=== PATIENT | female | born 1995 | race Caucasian/White ===

== ENCOUNTER 2018-01-12 23:33 | Emergency (ER) | payer MEDICAID ==
[2018-01-12 23:40] VITALS: TEMP 98.7
[2018-01-12] MEDS ORDERED: SODIUM CHLORIDE 0.9% 1,000 ML IV ONE (23:58)
[2018-01-12] MEDS ORDERED: SODIUM CHLORIDE 0.9% 500 ML IV ONE (23:58)
[2018-01-12] MEDS ORDERED: ONDANSETRON 4 MG/2 ML VIAL IVP STA (23:58)
--- NOTE | 2018-01-13 00:11 | ED ---
Abdominal Pain HPI - General Chief Complaint: Abdominal Pain Stated Complaint: abd pain,vomiting Time Seen by Provider: 01/12/18 23:41 Source: patient Mode of arrival: ambulatory Limitations: no limitations - History of Present Illness Initial Comments: 22-year-old female patient presents to the emergency department today for evaluation of vomiting, diarrhea, and abdominal discomfort. Patient states that symptoms started approximately 5 days ago. Patient states that she has had numerous episodes of vomiting and diarrhea daily. States she is unable to keep down any food or fluids. Patient states that she has had a fever as high as 100.5. Patient is unsure if she is . Denies any hematuria, dysuria , urinary frequency, urinary urgency. She denies any back pain. Patient did travel to [place] and [facility] approximately one month ago. Denies any sick contacts. Patient denies any recent rash, shortness breath, chest pain, constipation, back pain, numbness, tingling, dizziness, weakness, headache, visual changes, or any other complaints. - Related Data Previous Rx's Medication Instructions Recorded Ondansetron [Zofran ODT] 4 mg PO Q8HR PRN #10 tab 01/13/18 Allergies Allergy/AdvReac Type Severity Reaction Status Date / Time Sulfa (Sulfonamide Allergy Anaphylaxis Verified 01/12/18 23:38 Antibiotics) Review of Systems ROS Statement: Those systems with pertinent positive or pertinent negative responses have been documented in the HPI. ROS Other: All systems not noted in ROS Statement are negative. Past Medical History Additional Past Medical History / Comment(s): celiac disease History of Any Multi-Drug Resistant Organisms: None Reported Past Surgical History: No Surgical Hx Reported Past Psychological History: No Psychological Hx Reported Smoking Status: Never smoker Past Alcohol Use History: Occasional Past Drug Use History: None Reported General Exam Limitations: no limitations General appearance: alert, in no apparent distress, other (This is a well- developed, well-nourished adult female patient in no acute distress. Vital signs upon presentation are temperature 98.7F, pulse 92, respirations 18, blood pressure 145/92, pulse ox 98% on room air.) Eye exam: Present: normal appearance, PERRL, EOMI. Absent: scleral icterus, conjunctival injection, periorbital swelling ENT exam: Present: normal exam, normal oropharynx, mucous membranes moist Respiratory exam: Present: normal lung sounds bilaterally. Absent: respiratory distress, wheezes, rales, rhonchi, stridor Cardiovascular Exam: Present: regular rate, normal rhythm, normal heart sounds. Absent: systolic murmur, diastolic murmur, rubs, gallop, clicks GI/Abdominal exam: Present: soft, normal bowel sounds. Absent: distended, tenderness, guarding, rebound, rigid Neurological exam: Present: alert, oriented X3, CN II-XII intact Psychiatric exam: Present: normal affect, normal mood Skin exam: Present: warm, dry, intact, normal color. Absent: rash Course Vital Signs 01/12/18 23:38 Temperature 98.7 F Pulse Rate 92 Respiratory 18 Rate Blood Pressure 145/92 O2 Sat by Pulse 98 Oximetry Medical Decision Making - Medical Decision Making 22-year-old female patient presented to the emergency department today for evaluation of vomiting, diarrhea, and generalized abdominal cramping. Patient reported she did have fevers over the last couple of days. Labs reviewed and were unremarkable. Urinalysis showed no evidence of infection. HCG was negative. Given patient's symptoms do believe she is suffering from gastroenteritis. She isn't better after receiving Zofran and IV fluids here in the department. She'll be discharged home at this time a prescription for Zofran. She is instructed to follow-up with her primary care physician for recheck in 1-2 days. She is instructed to return here immediately for any new, worsening, or concerning symptoms. She verbalizes understanding and agrees with this plan. - Lab Data Result diagrams: 01/13/18 00:22 01/13/18 00:22 Lab Results 01/12/18 01/12/18 01/13/18 Range/Units 23:59 23:59 00:22 WBC (3.8-10.6) k/uL RBC (3.80-5.40) m/uL Hgb (11.4-16.0) gm/dL Hct (34.0-46.0) % MCV (80.0-100.0) fL MCH (25.0-35.0) pg MCHC (31.0-37.0) g/dL RDW (11.5-15.5) % Plt Count (150-450) k/uL Neutrophils % (Manual) % Lymphocytes % (Manual) % Monocytes % (Manual) % Eosinophils % (Manual) % Neutrophils # (Manual) (1.3-7.7) k/uL Lymphocytes # (Manual) (1.0-4.8) k/uL Monocytes # (Manual) (0-1.0) k/uL Eosinophils # (Manual) (0-0.7) k/uL Nucleated RBCs (0-0) /100 WBC Manual Slide Review Reactive Lymphocytes Sodium 137 (137-145) mmol/L Potassium 3.6 (3.5-5.1) mmol/L Chloride 98 (98-107) mmol/L Carbon Dioxide 27 (22-30) mmol/L Anion Gap 12 mmol/L BUN 10 (7-17) mg/dL Creatinine 0.70 (0.52-1.04) mg/dL Est GFR (CKD-EPI)AfAm >90 (>60 ml/min/1.73 sqM) Est GFR (CKD-EPI)NonAf >90 (>60 ml/min/1.73 sqM) Glucose 85 (74-99) mg/dL Calcium 9.0 (8.4-10.2) mg/dL Total Bilirubin 0.3 (0.2-1.3) mg/dL AST 32 (14-36) U/L ALT 40 (9-52) U/L Alkaline Phosphatase 59 (38-126) U/L Total Protein 6.0 L (6.3-8.2) g/dL Albumin 3.5 (3.5-5.0) g/dL Amylase 37 (30-110) U/L Lipase 50 (23-300) U/L Urine Color Yellow Urine Appearance Cloudy H (Clear) Urine pH 6.5 (5.0-8.0) Ur Specific [place] 1.032 (1.001-1.035) Urine Protein 1+ H (Negative) Urine Glucose (UA) Negative (Negative) Urine Ketones Trace H (Negative) Urine Blood Negative (Negative) Urine Nitrite Negative (Negative) Urine Bilirubin Negative (Negative) Urine Urobilinogen 3.0 (<2.0) mg/dL Ur Leukocyte Esterase Negative (Negative) Urine RBC 4 (0-5) /hpf Urine WBC 6 H (0-5) /hpf Ur Squamous Epith Cells 7 H (0-4) /hpf Urine Bacteria Rare H (None) /hpf Urine Mucus Occasional H (None) /hpf Urine HCG, Qual Not Detected (Not Detectd) 01/13/18 Range/Units 00:22 WBC 5.7 (3.8-10.6) k/uL RBC 4.49 (3.80-5.40) m/uL Hgb 13.9 (11.4-16.0) gm/dL Hct 39.2 (34.0-46.0) % MCV 87.3 (80.0-100.0) fL MCH 31.0 (25.0-35.0) pg MCHC 35.6 (31.0-37.0) g/dL RDW 13.7 (11.5-15.5) % Plt Count 260 (150-450) k/uL Neutrophils % (Manual) 56 % Lymphocytes % (Manual) 24 % Monocytes % (Manual) 18 % Eosinophils % (Manual) 2 % Neutrophils # (Manual) 3.19 (1.3-7.7) k/uL Lymphocytes # (Manual) 1.37 (1.0-4.8) k/uL Monocytes # (Manual) 1.03 H (0-1.0) k/uL Eosinophils # (Manual) 0.11 (0-0.7) k/uL Nucleated RBCs 0 (0-0) /100 WBC Manual Slide Review Performed Reactive Lymphocytes Present Sodium (137-145) mmol/L Potassium (3.5-5.1) mmol/L Chloride (98-107) mmol/L Carbon Dioxide (22-30) mmol/L Anion Gap mmol/L BUN (7-17) mg/dL Creatinine (0.52-1.04) mg/dL Est GFR (CKD-EPI)AfAm (>60 ml/min/1.73 sqM) Est GFR (CKD-EPI)NonAf (>60 ml/min/1.73 sqM) Glucose (74-99) mg/dL Calcium (8.4-10.2) mg/dL Total Bilirubin (0.2-1.3) mg/dL AST (14-36) U/L ALT (9-52) U/L Alkaline Phosphatase (38-126) U/L Total Protein (6.3-8.2) g/dL Albumin (3.5-5.0) g/dL Amylase (30-110) U/L Lipase (23-300) U/L Urine Color Urine Appearance (Clear) Urine pH (5.0-8.0) Ur Specific [place] (1.001-1.035) Urine Protein (Negative) Urine Glucose (UA) (Negative) Urine Ketones (Negative) Urine Blood (Negative) Urine Nitrite (Negative) Urine Bilirubin (Negative) Urine Urobilinogen (<2.0) mg/dL Ur Leukocyte Esterase (Negative) Urine RBC (0-5) /hpf Urine WBC (0-5) /hpf Ur Squamous Epith Cells (0-4) /hpf Urine Bacteria (None) /hpf Urine Mucus (None) /hpf Urine HCG, Qual (Not Detectd) Disposition Clinical Impression: Gastroenteritis Disposition: HOME SELF-CARE Condition: Good Instructions: Gastroenteritis (ED) Additional Instructions: Increase fluids. Take medications as directed. Return with stool sample for the lab. Follow-up with your primary care physician for recheck in 1-2 days. Return here immediately for any new, worsening, or concerning symptoms. Prescriptions: Ondansetron [Zofran ODT] 4 mg PO Q8HR PRN #10 tab PRN Reason: Nausea Is patient prescribed a controlled substance at d/c from ED?: No Referrals: Asad Sheikh DO [Primary Care Provider] - 1-2 days Time of Disposition: 02:05
[2018-01-13 00:18] LABS: Appearance,Urine Cloudy (Clear); Bacteria,Urine Rare /hpf; Bilirubin,Urine Negative (Negative); Blood,Urine Negative (Negative); Color,Urine Yellow; Glucose,Urine (UA) Negative (Negative); Ketones,Urine Trace (Negative); Leukocyte Esterase,Urine Negative (Negative); Mucus,Urine Occasional /hpf; Nitrite,Urine Negative (Negative); PH, Urine 6.5 (5.0-8.0); Protein,Urine 1+ (Negative); RBC,Urine 4 /hpf (0-5); Specific Gravity,Urine 1.032 (1.001-1.035); Squamous Epithelial Cell,Urine 7 /hpf (0-4); WBC,Urine 6 /hpf (0-5)
[2018-01-13 00:48] LABS: HCT 39.2 % (34.0-46.0); HGB 13.9 gm/dL (11.4-16.0); MCHC 35.6 g/dL (31.0-37.0); MCV 87.3 fL (80.0-100.0); Mean Platelet Volume 6.9; Platelet Count 260 k/uL (150-450); RBC 4.49 m/uL (3.80-5.40); RDW 13.7 % (11.5-15.5); WBC 5.7 k/uL (3.8-10.6)
[2018-01-13 00:57] LABS: ALT 40 U/L (9-52); AST 32 U/L (14-36); Albumin 3.5 g/dL (3.5-5.0); Alkaline Phosphatase 59 U/L (38-126); Amylase 37 U/L (30-110); Anion Gap 12 mmol/L; Blood Urea Nitrogen 10 mg/dL (7-17); Carbon Dioxide 27 mmol/L (22-30); Chloride 98 mmol/L (98-107); Glucose 85 mg/dL (74-99); Lipase 50 U/L (23-300); Potassium 3.6 mmol/L (3.5-5.1); Sodium 137 mmol/L (137-145); Total Bilirubin 0.3 mg/dL (0.2-1.3)
[2018-01-13 01:14] LABS: Eosinophils # (M) 0.11 k/uL (0-0.7); Lymphocytes # (M) 1.37 k/uL (1.0-4.8); Monocytes # (M) 1.03 k/uL (0-1.0); Neutrophils # (M) 3.19 k/uL (1.3-7.7); Neutrophils % (M) 56 %; Nucleated Red Blood Cells 0 /100 WBC (0-0); Reactive Lymphocytes Present; Total Cells Counted 100
[2018-01-13] MEDS ORDERED: ONDANSETRON 4 MG ODT STARTER PACK 2 TAB BTL PO STA (02:07)
[2018-01-13 02:20] VITALS: BP 151/61; PULSE 70; RESP 16
== END 2018-01-13 02:24 | disposition home or self-care (01) ==
LOC: EC 23:33
DX: K52.9 Noninfective gastroenteritis and colitis, unspecified (principal); Z32.02 Encounter for pregnancy test, result negative; Z88.2 Allergy status to sulfonamides
CPT/HCPCS: 99284; 96374; 96361; 36415; 80053; 82150; 83690; 85025; 81001; 81025; J2405

== ENCOUNTER → 2021-01-20 | Outpatient (CLI) | payer OTHER ==
--- NOTE | 2021-01-20 15:29 | US ---
EXAMINATION TYPE: US abdomen complete DATE OF EXAM: 01/20/2021 COMPARISON: NONE CLINICAL HISTORY: R10.13 EPIGASTRIC PAIN, R10.2 PELVIC PAIN. epigastric pain, RLQ pain EXAM MEASUREMENTS: Liver Length: 18.0 cm Gallbladder Wall: 0.2 cm CBD: 0.3 cm Spleen: 10.0 cm Right Kidney: 11.2 x 3.4 x 5.4 cm Left Kidney: 11.6 x 4.2 x 3.8 cm Pancreas: Obscured by bowel gas Liver: wnl Gallbladder: no evidence of stones Evidence for sonographic Alfaro's sign: no CBD: wnl Spleen: wnl Right Kidney: no evidence of hydronephrosis Left Kidney: no evidence of hydronephrosis Upper IVC: wnl Abd Aorta: wnl The liver is homogenous. The intrahepatic portion of the IVC and proximal abdominal aorta are within normal limits. There is no evidence of cholelithiasis. Common bile duct is unremarkable. The visu alized portions of the pancreas are homogenous. The spleen is unremarkable. Kidneys are symmetric a nd free of hydronephrosis. No renal lesions are seen. IMPRESSION: Unremarkable abdominal ultrasound. Pancreas obscured.
--- NOTE | 2021-01-20 15:30 | US ---
EXAMINATION TYPE: US pelvic complete DATE OF EXAM: 01/20/2021 COMPARISON: NONE CLINICAL HISTORY: R10.13 EPIGASTRIC PAIN,R10.2 PELVIC PAIN. right pelvic pain for 1 month TECHNIQUE: Transabdominal (TA). Date of LMP: 3 weeks ago EXAM MEASUREMENTS: Uterus: 8.1 x 4.2 x 4.6 cm Endometrial Stripe: 0.4 cm Right Ovary: 3.0 x 1.9 x 2.1 cm Left Ovary: 2.3 x 1.8 x 2.1 cm 1. Uterus: Anteverted 2. Endometrium: appears wnl 3. Right Ovary: follicles noted 4. Left Ovary: follicles noted 5. Bilateral Adnexa: small amount of free fluid. large amount of peristalsing bowel 6. Posterior cul-de-sac: small amount of free fluid noted IMPRESSION: Free fluid in the pelvis is likely physiologic.
== END | disposition home or self-care (01) ==
LOC: RADUSWWP 14:09
PROVIDERS: ATTEND Family Medicine
DX: R10.13 Epigastric pain (principal); R10.2 Pelvic and perineal pain; R10.31 Right lower quadrant pain
CPT/HCPCS: 76700; 76856

== ENCOUNTER 2021-01-30 10:43 | Day surgery (SDC) | payer OTHER ==
[2021-01-27 13:01] VITALS: BMI 19.3
[~2021-01-30 10:43] MED LIST: LACTATED RINGERS 1,000 ML IV SCH; LIDOCAINE 1% (10MG/ML) FOR IV START INTRADERMA PRN
[2021-01-30 11:53] VITALS: TEMP 98.9
[2021-01-30] MEDS ORDERED: LIDOCAINE 1% INJ 10MG/ML (20 ML MDV) ONE (12:43)
[2021-01-30] MEDS ORDERED: PROPOFOL 10 MG/ML 20 ML VIAL IV ONE (12:43)
--- NOTE | 2021-01-30 12:56 | P.PCN ---
Date of Procedure: 01/30/21 Procedure(s) Performed: BRIEF HISTORY: Patient is a 25-year-old, pleasant, white female scheduled for an upper endoscopy as a part of evaluation of epigastric pain and lower abdominal pain associated with progressive weight loss of 20 pounds in the last 6 months duration. She is currently on Prilosec and Bentyl with no help.. PROCEDURE PERFORMED: Esophagogastroduodenoscopy with biopsy. PREOPERATIVE DIAGNOSIS: Chronic Epigastric pain and weight loss for the last 6 months duration IV sedation per anesthesia. PROCEDURE: After informed consent was obtained, the patient was brought into the endoscopy unit. IV sedation was administered by Anesthesia under continuous monitoring. Initially the Olympus GIF-140 video endoscope was inserted into the mouth. Esophagus intubated without any difficulty. It was gradually advanced into the stomach and duodenum and carefully examined. The bulb and the second part of the duodenum appeared normal. Abscesses were done from the duodenum to rule out celiac disease. The scope at this time was withdrawn to the stomach, adequately insufflated with air, and upon careful examination, mucosa of the antrum, biopsies were done from this area. The body, cardia and the fundus appeared normal. The scope was then withdrawn into the esophagus. The GE junction was located at 39 cm from the incisors. The esophagus appeared normal. There were no erosions or ulcerations seen and the patient tolerated the procedure well. IMPRESSION: 1. Mild antral gastritis. 2. No evidence of esophagitis or peptic ulcer disease. RECOMMENDATIONS: The findings of this examination were discussed with the patient as well as a family. She was advised to follow with the biopsy results. Continue with Prilosec 20 mg daily..
[2021-01-30 13:13] VITALS: BP 115/65; PULSE 98; RESP 16
== END 2021-01-30 13:44 | disposition home or self-care (01) ==
LOC: ORWHC2ENDO 10:43
PROVIDERS: ATTEND Internal Medicine Gastroenterology
DX: K29.50 Unspecified chronic gastritis without bleeding (principal); G89.29 Other chronic pain; Z79.899 Other long term (current) drug therapy; K90.0 Celiac disease; Z88.2 Allergy status to sulfonamides
CPT/HCPCS: 81025; 88305; 43239; J2001; J2704

== ENCOUNTER → 2021-05-14 | Outpatient (CLI) | payer OTHER | END | disposition home or self-care (01) | LOC: LABWHC1 10:09 | PROVIDERS: ATTEND Nurse Practitioner Family | DX: Z53.9 Procedure and treatment not carried out, unspecified reason (principal) ==

== ENCOUNTER → 2021-05-21 | Outpatient (CLI) | payer OTHER ==
[2021-05-22 04:25] LABS: Hepatitis B Surface Antibody NonReactive (Nonreactive)
== END | disposition home or self-care (01) ==
LOC: LABWHC1 16:32
PROVIDERS: ATTEND Nurse Practitioner Family
DX: Z00.00 Encounter for general adult medical examination without abnormal findings (principal); Z13.9 Encounter for screening, unspecified; R74.8 Abnormal levels of other serum enzymes
CPT/HCPCS: 36415; 86480; 86706

== ENCOUNTER → 2021-11-18 | Day surgery (SDC) | payer OTHER ==
[~2021-11-18] MED LIST changes: +GLUCAGON 1 MG/ML VIAL IM STA; -LACTATED RINGERS 1,000 ML IV SCH; -LIDOCAINE 1% (10MG/ML) FOR IV START INTRADERMA PRN
[2021-11-18 08:55] VITALS: BP 124/78; PULSE 93; RESP 16; TEMP 97.6
--- NOTE | 2021-11-20 08:42 | MR ---
EXAMINATION TYPE: MR Enterography DATE OF EXAM: 11/18/2021 COMPARISON: Ultrasound abdomen complete January 20, 2021 HISTORY: Lower abdominal pain, R/O CROHN'S CONTRAST: Standard multiplanar, multisequence imaging of the abdomen is performed without and with IV contrast, patient is injected with 1150 mL intravenous Gadavist gadolinium contrast. Oral Volumen was given as per enterography protocol. FINDINGS: Bowel: Satisfactory fluid distention of the stomach without suspicious eccentric wall thickening or m ural enhancement. Less than optimal fluid distention of duodenal sweep without suspicious wall thicke nico or mural enhancement. There is fairly satisfactory fluid-filled distention of small bowel loops particularly in the lower a bdomen. There is however less than ideal distention of the terminal ileum which is slightly lower in position in the right pelvis. [id number] concentric wall thickening is present at this level wi thout definitive eccentric enhancement. There is some crowding of nondilated distal ileal loops near this level. A single loop of bowel in the right upper to mid pelvis over roughly 9 cm in length shows moderate to severe concentric wall thickening with some restricted diffusion in the wall with mucosa l enhancement. Bowel wall shows no increased T2 signal. No distinct ulceration. There is fluid promin ent bowel proximal and distal to this. This is difficult to localize as patient has little intra-abdo ravin fat. Additional bowel loops show no definitive additional areas of abnormal enhancement or susp icious wall thickening. Other: Slightly retroverted uterus. Small amount of free fluid in the pelvis axial image 10 is nonspecific. Ovaries seen with scattered peripheral follicles bilaterally. Visualized portion of liver, gallbladder, spleen, and both adrenal glands appear within normal limits . No suspicious renal mass or hydronephrosis. Visualized osseous structures are intact. IMPRESSION: Abnormal study. Moderate length focal enteritis involving distal ileal loop in the right pelvis. Fluid-filled prominence of bowel proximal and distal to this raises concern for some underlyi ng stenosis or stricturing or acute on chronic inflammation. Suboptimal study due to lack of fat. [employer] hn's disease would be in the differential.
== END ==
LOC: RADMRIMAIN 08:16
PROVIDERS: ATTEND Internal Medicine Gastroenterology
DX: R10.30 Lower abdominal pain, unspecified (principal)
CPT/HCPCS: 96372; 72197; 74183; J1610; A9585

== ENCOUNTER → 2023-03-18 | Outpatient (CLI) | payer MEDICAID ==
[~2023-03-18] MED LIST changes: -GLUCAGON 1 MG/ML VIAL IM STA; +INFLIXIMAB-DYYB 300 MG in SODIUM CHLORIDE 0.9% 250 ML IV NR; +SODIUM CHLORIDE 0.9% 500 ML 500 ML in EMPTY BAG 1 BAG IV PRN
[2023-03-18 12:25] VITALS: RESP 15; TEMP 98.3
[2023-03-18 14:05] VITALS: BP 94/65; PULSE 71
== END ==
LOC: PROCWHC3 11:54
PROVIDERS: ATTEND Internal Medicine Gastroenterology
DX: K50.00 Crohn's disease of small intestine without complications (principal)
CPT/HCPCS: 96413; 96415; Q5103

== ENCOUNTER → 2023-05-13 | Outpatient (CLI) | payer MEDICAID ==
[2023-05-13 09:42] VITALS: RESP 16; TEMP 97.7
[2023-05-13 11:24] VITALS: BP 101/54; PULSE 72
== END ==
LOC: PROCWHC3 09:04
PROVIDERS: ATTEND Internal Medicine Gastroenterology
DX: K50.00 Crohn's disease of small intestine without complications (principal)
CPT/HCPCS: 96413; 96415; Q5103

== ENCOUNTER → 2023-07-08 | Outpatient (CLI) | payer MEDICAID ==
[~2023-07-08] MED LIST changes: +INFLIXIMAB-DYYB 300 MG in SODIUM CHLORIDE 0.9% 220 ML IV NR; -INFLIXIMAB-DYYB 300 MG in SODIUM CHLORIDE 0.9% 250 ML IV NR
[2023-07-08 09:27] VITALS: RESP 16; TEMP 97.9
[2023-07-08 09:43] LABS: Basophils % (A) 0 %; Eosinophils # (A) 0.2 k/uL (0-0.7); Eosinophils % (A) 2 %; HCT 37.4 % (34.0-46.0); HGB 12.7 gm/dL (11.4-16.0); Lymphocytes # (A) 0.9 k/uL (1.0-4.8); Lymphocytes % (A) 12 %; MCV 85.3 fL (80.0-100.0); Mean Platelet Volume 7.4; Monocytes # (A) 0.4 k/uL (0-1.0); Monocytes % (A) 5 %; Neutrophils # (A) 5.9 k/uL (1.3-7.7); Neutrophils % (A) 79 %; Platelet Count 331 k/uL (150-450); RBC 4.39 m/uL (3.80-5.40); RDW 13.8 % (11.5-15.5); WBC 7.4 k/uL (3.8-10.6)
[2023-07-08 09:56] LABS: ALT 14 U/L (4-34); AST 20 U/L (14-36); African American GFR (CKD) >90 (>60 ml/min/1.73 sqM); Albumin 4.1 g/dL (3.5-5.0); Alkaline Phosphatase 75 U/L (38-126); Anion Gap 11 mmol/L; Blood Urea Nitrogen 14 mg/dL (7-17); C Reactive Protein 2.6 mg/dL (<1.0); Calcium 9.4 mg/dL (8.4-10.2); Carbon Dioxide 20 mmol/L (22-30); Chloride 108 mmol/L (98-107); Glucose 92 mg/dL (74-99); Non-African American GFR(CKD) >90 (>60 ml/min/1.73 sqM); Potassium 4.3 mmol/L (3.5-5.1); Sodium 139 mmol/L (137-145); Total Bilirubin 0.5 mg/dL (0.2-1.3); Total Protein 7.1 g/dL (6.3-8.2)
[2023-07-08 11:45] VITALS: BP 100/64; PULSE 73
[2023-07-08 16:03] LABS: Erythrocyte Sedimentation Rate 27 mm/Hr (0-20)
== END ==
LOC: PROCWHC3 08:59
PROVIDERS: ATTEND Internal Medicine Gastroenterology
DX: K50.00 Crohn's disease of small intestine without complications (principal)
CPT/HCPCS: 80053; 85652; 85025; 86140; 96413; 96415; Q5103

== ENCOUNTER → 2023-08-25 | Outpatient (CLI) | payer MEDICAID ==
[~2023-08-25] MED LIST changes: -INFLIXIMAB-DYYB 300 MG in SODIUM CHLORIDE 0.9% 220 ML IV NR; +INFLIXIMAB-DYYB 400 MG in SODIUM CHLORIDE 0.9% 210 ML IV NR
[2023-08-25 12:13] VITALS: RESP 16; TEMP 98.3
[2023-08-25 14:15] VITALS: BP 103/68; PULSE 69
== END ==
LOC: PROCWHC3 11:25
PROVIDERS: ATTEND Internal Medicine Gastroenterology
DX: K50.00 Crohn's disease of small intestine without complications (principal)
CPT/HCPCS: 96413; 96415; Q5103

== ENCOUNTER → 2023-09-01 | Outpatient (CLI) | payer MEDICAID | END | disposition home or self-care (01) | LOC: LABMAIN 12:55 | PROVIDERS: ATTEND Physician Assistant | DX: R05.9 Cough, unspecified (principal); R50.9 Fever, unspecified; Z20.822 Contact with and (suspected) exposure to COVID-19 | CPT/HCPCS: 87636 ==

== ENCOUNTER → 2023-11-04 | Outpatient (CLI) | payer MEDICAID ==
[~2023-11-04] MED LIST changes: -SODIUM CHLORIDE 0.9% 500 ML 500 ML in EMPTY BAG 1 BAG IV PRN
[2023-11-04] MEDS: SODIUM CHLORIDE 0.9% 500 ML 500 ML in EMPTY BAG 1 BAG IV PRN (09:39)
[2023-11-04 09:43] VITALS: TEMP 98.2
[2023-11-04] MEDS: INFLIXIMAB-DYYB 400 MG in SODIUM CHLORIDE 0.9% 210 ML IV NR (10:15)
[2023-11-04 10:59] VITALS: RESP 14
[2023-11-04 11:38] VITALS: BP 108/70; PULSE 77
== END ==
LOC: PROCWHC3 09:23
PROVIDERS: ATTEND Internal Medicine Gastroenterology
DX: K50.00 Crohn's disease of small intestine without complications (principal)
CPT/HCPCS: 96413; 96415; Q5103

== ENCOUNTER 2023-12-01 16:07 | Emergency (ER) | payer MEDICAID ==
--- NOTE | 2023-12-01 16:38 | ED ---
Abdominal Pain HPI - General Chief Complaint: Abdominal Pain Stated Complaint: abd pain Time Seen by Provider: 12/01/23 16:30 Source: patient, RN notes reviewed Mode of arrival: ambulatory Limitations: no limitations - History of Present Illness Initial Comments: This is a 28-year-old female with a history of Crohn's who presents emergency department chief complaint of abdominal pain and bloating over the past 5 days. Her last bowel movement was 2 days ago which is unlike her where she normally has upwards of 5 bowel movements a day. She states that the pain is generalized and moves throughout her abdomen most notable now the mid abdomen. She denies nausea, vomiting, fevers, shortness of breath. States that she is still passing gas. Denies dysuria, hematuria, frequency or urgency. Denies previous abdominal surgeries and is on an immunologic, inflectra, for Crohn's. - Related Data Home Medications Medication Instructions Recorded Confirmed Cholecalciferol [Vitamin D3 (25 25 mcg PO DAILY 01/27/21 11/04/23 Mcg = 1000 Iu)] Acetaminophen [Tylenol Extra 1,000 mg PO Q6H PRN 10/16/21 11/04/23 Strength] S[place]pp[place] 1 tab PO DAILY 11/04/23 11/04/23 Previous Rx's Medication Instructions Recorded Ketorolac [Toradol] 10 mg PO Q8HR #15 tab 12/01/23 predniSONE 50 mg PO DAILY #5 tab 12/01/23 Allergies Allergy/AdvReac Type Severity Reaction Status Date / Time Sulfa (Sulfonamide Allergy Anaphylaxis Verified 12/01/23 16:33 Antibiotics) Review of Systems ROS Statement: Those systems with pertinent positive or pertinent negative responses have been documented in the HPI. ROS Other: All systems not noted in ROS Statement are negative. Past Medical History Additional Past Medical History / Comment(s): CELIAC SYNDROME, CHROHS DISEASE History of Any Multi-Drug Resistant Organisms: None Reported Past Surgical History: No Surgical Hx Reported Additional Past Surgical History / Comment(s): EGD, Colonoscopy Past Anesthesia/Blood Transfusion Reactions: No Reported Reaction Additional Past Anesthesia/Blood Transfusion Reaction / Comment(s): , no family problems w/anesthesia Past Psychological History: No Psychological Hx Reported Smoking Status: Never smoker Past Alcohol Use History: None Reported Past Drug Use History: None Reported - Past Family History Mother Family Medical History: No Reported History General Exam Limitations: no limitations General appearance: alert, in no apparent distress Head exam: Present: atraumatic, normocephalic, normal inspection Eye exam: Present: normal appearance, PERRL, EOMI. Absent: scleral icterus, conjunctival injection, periorbital swelling ENT exam: Present: normal exam, mucous membranes moist Neck exam: Present: normal inspection. Absent: tenderness, meningismus, lymphadenopathy Respiratory exam: Present: normal lung sounds bilaterally. Absent: respiratory distress, wheezes, rales, rhonchi, stridor Cardiovascular Exam: Present: regular rate, normal rhythm, normal heart sounds. Absent: systolic murmur, diastolic murmur, rubs, gallop, clicks GI/Abdominal exam: Present: soft, distended, tenderness (diffuse, most notable over the mid abdomen and RUQ), rebound, diminished bowel sounds. Absent: rigid, organomegaly, mass, bruit, pulsatile mass Extremities exam: Present: normal inspection, full ROM, normal capillary refill. Absent: tenderness, pedal edema, joint swelling, calf tenderness Back exam: Present: normal inspection Neurological exam: Present: alert, oriented X3, CN II-XII intact Psychiatric exam: Present: normal affect, normal mood Skin exam: Present: warm, dry, intact, normal color. Absent: rash Course Vital Signs 12/01/23 12/01/23 16:29 19:49 Temperature 98.0 F Pulse Rate 98 70 Respiratory 18 16 Rate Blood Pressure 135/90 108/76 O2 Sat by Pulse 100 98 Oximetry Medical Decision Making - Medical Decision Making Was pt. sent in by a medical professional or institution (, PA, DIRECTOR OF DISTRICT OFFICE, urgent care, hospital, or jail...) When possible be specific @ -No Did you speak to anyone other than the patient for history (EMS, parent, family, police, friend...)? What history was obtained from this source @ -No Did you review nursing and triage notes (agree or disagree)? Why? @ -I reviewed and agree with nursing and triage notes Were old charts reviewed (outside hosp., previous admission, EMS record, old EKG, old radiological studies, urgent care reports/EKG's, jail records)? Report findings @ -No old charts were reviewed Differential Diagnosis (chest pain, altered mental status, abdominal pain women, abdominal pain men, vaginal bleeding, weakness, fever, dyspnea, syncope, headache, dizziness, GI bleed, back pain, seizure, CVA, palpatations, mental health, musculoskeletal)? @ -Differential Abdominal Pain Women: Appendicitis, Cholecystitis, diverticulosis, ischemic bowel, pancreatitis, hepatitis, UTI, gastroenteritis, AAA, incarcerated hernia, bowel obstruction, constipation, inflammatory bowel, hepatitis, peptic ulcer disease, splenic infarction, perforated viscus, vulvitis, ovarian torsion, PID, kidney stone, placenta abruption, this is not meant to be an all-inclusive list EKG interpreted by me (3pts min.). @ -None X-rays interpreted by me (1pt min.). @ -X-ray KUB findings consistent with a small bowel obstruction CT interpreted by me (1pt min.). @ -CT of the abdomen pelvis reveals distal small bowel obstruction with markedly air and fluid-filled dilated small bowel loops with amorphous diffuse inflammatory changes in the terminal ileum is consistent with inflammatory bowel disease U/S interpreted by me (1pt. min.). @ -None done What testing was considered but not performed or refused? (CT, X-rays, U/S, labs)? Why? @ -None What meds were considered but not given or refused? Why? @ -Additional pain medication including Dilaudid and morphine were offered but patient declined at this time. Did you discuss the management of the patient with other professionals (nannette hoover i.e., Dr., PA, DIRECTOR OF DISTRICT OFFICE, lab, RT, psych nurse, director of social services, hoist mechanic, teacher, chief operating officer, vocational case manager)? Give summary @ -Dr. Santana recommends transfer of the patient to another hospital with GI s pecialty. Was smoking cessation discussed for >3mins.? @ -No Was critical care preformed (if so, how long)? @ -No Were there social determinants of health that impacted care today? How? (Homelessness, low income, unemployed, alcoholism, drug addiction, transportation, low edu. Level, literacy, decrease access to med. care, fpc, rehab)? @ -No Was there de-escalation of care discussed even if they declined (Discuss DNR or withdrawal of care, Hospice)? DNR status @ -No What co-morbidities impacted this encounter? (DM, HTN, Smoking, COPD, CAD, Cancer, CVA, ARF, Chemo, Hep., AIDS, mental health diagnosis, sleep apnea, morbid obesity)? @ -None Was patient admitted / discharged? Hospital course, mention meds given and route, prescriptions, significant lab abnormalities, going to OR and other per tinent info. @ -Discharged. 28-year-old female with a chief complaint of abdominal pain, distention, and constipation. On physical examination patient noted to have a mild to moderately distended abdomen that is tender to palpation most notably over the mid abdomen and right upper quadrant. Patient notes that she is still passing gas and abdomen is soft. cardiopulmonary examination unremarkable. At this time patient sent for x-ray due to patient not requesting laboratory work or further imaging. Due to my examination of xray, concern for bowel obstruction labs ordered in addition to CT of the abdomen and pelvis. Patient's laboratory results including CBC, CMP and coagulation profile unremarkable. CT concerning for small bowel obstruction and air-fluid bowel loops. At this time surgery was consulted for further evaluation. Dr. Ordoñez spoke with Dr. Santana, who recommends transfer of the patient to another hospital which has GI coverage. After long discussion with the patient at bedside she is deferring transfer to another facility. Patient is requesting steroid administration and states that she will follow-up as needed if her symptoms worsen or do not improve. Patient states that she has. Abdominal pain like this previously. Lengthy discussion about return strict return parameters with the patient and she is in agreement with this. Patient given IV push of Solu-Medrol in addition to outpatient prescription for short course of prednisone. Undiagnosed new problem with uncertain prognosis? @ -No Drug Therapy requiring intensive monitoring for toxicity (Heparin, Nitro, Insulin, Cardizem)? @ -No Were any procedures done? @ -No Diagnosis/symptom? @ -Small bowel obstruction, abdominal pain, chron's disease Acute, or Chronic, or Acute on Chronic? @ -acute Uncomplicated (without systemic symptoms) or Complicated (systemic symptoms)? @ complicated Side effects of treatment? @ -No Exacerbation, Progression, or Severe Exacerbation? @ -No Poses a threat to life or bodily function? How? (Chest pain, USA, NV, pneumonia, PE, COPD, DKA, ARF, appy, cholecystitis, CVA, Diverticulitis, Homicidal, Suicidal, threat to staff... and all critical care pts) @ -yes, untreated SBO can lead to perforation and subsequent intestinal damage or muti organ system dysfunction. - Lab Data Result diagrams: 12/01/23 17:27 12/01/23 17:27 Lab Results 12/01/23 12/01/23 12/01/23 Range/Units 17:27 17:27 17:27 WBC 6.4 (3.8-10.6) k/uL RBC 4.19 (3.80-5.40) m/uL Hgb 11.8 (11.4-16.0) gm/dL Hct 37.8 (34.0-46.0) % MCV 90.2 (80.0-100.0) fL MCH 28.2 (25.0-35.0) pg MCHC 31.2 (31.0-37.0) g/dL RDW 14.5 (11.5-15.5) % Plt Count 487 H (150-450) k/uL MPV 6.8 Neutrophils % 73 % Lymphocytes % 18 % Monocytes % 5 % Eosinophils % 1 % Basophils % 1 % Neutrophils # 4.7 (1.3-7.7) k/uL Lymphocytes # 1.2 (1.0-4.8) k/uL Monocytes # 0.3 (0-1.0) k/uL Eosinophils # 0.1 (0-0.7) k/uL Basophils # 0.1 (0-0.2) k/uL PT 10.2 (10.0-12.5) sec INR 0.9 (<1.2) APTT 25.0 (22.0-30.0) sec Sodium 136 L (137-145) mmol/L Potassium 4.4 (3.5-5.1) mmol/L Chloride 106 (98-107) mmol/L Carbon Dioxide 26 (22-30) mmol/L Anion Gap 4 mmol/L BUN 14 (7-17) mg/dL Creatinine 0.55 (0.52-1.04) mg/dL Est GFR (CKD-EPI)AfAm >90 (>60 ml/min/1.73 sqM) Est GFR (CKD-EPI)NonAf >90 (>60 ml/min/1.73 sqM) Glucose 85 (74-99) mg/dL Calcium 8.7 (8.4-10.2) mg/dL Total Bilirubin 0.6 (0.2-1.3) mg/dL AST 22 (14-36) U/L ALT 13 (4-34) U/L Alkaline Phosphatase 105 (38-126) U/L Total Protein 6.6 (6.3-8.2) g/dL Albumin 3.7 (3.5-5.0) g/dL Disposition Clinical Impression: Small bowel obstruction, Inflammatory bowel disease (Crohn's disease) Narrative: Please return to the Emergency Department if symptoms worsen or any other concerns. Complete full course of steroids as prescribed and take Toradol as needed for pain relief. Disposition: HOME SELF-CARE Condition: Fair Prescriptions: predniSONE 50 mg PO DAILY #5 tab Ketorolac [Toradol] 10 mg PO Q8HR #15 tab Is patient prescribed a controlled substance at d/c from ED?: No Referrals: Samy Garcia MD [Primary Care Provider] - 1-2 days Time of Disposition: 19:21 - Out of Hospital Transfer - Req. Specs Out of Hospital Transfer - Requested Specifics: Other Non-Acute
--- NOTE | 2023-12-01 17:11 | XR ---
KUB. HISTORY: Abdominal pain. COMPARISON: None. TECHNIQUE: 2 upright views of the abdomen were obtained. FINDINGS: The lung bases are clear. There is no free intraperitoneal air beneath the diaphragm. There are dilated air and fluid-filled small bowel with differential air-fluid levels consistent with a proximal to mid small bowel obstruction. No suspicious abdominal or pelvic osseous lesions are seen. The osseous structures are intact. IMPRESSION: Findings consistent with a small bowel obstruction.
[2023-12-01 17:31] VITALS: TEMP 98
[2023-12-01 17:36] LABS: Basophils # (A) 0.1 k/uL (0-0.2); Basophils % (A) 1 %; Eosinophils # (A) 0.1 k/uL (0-0.7); Eosinophils % (A) 1 %; HCT 37.8 % (34.0-46.0); HGB 11.8 gm/dL (11.4-16.0); Lymphocytes # (A) 1.2 k/uL (1.0-4.8); Lymphocytes % (A) 18 %; MCH 28.2 pg (25.0-35.0); MCHC 31.2 g/dL (31.0-37.0); MCV 90.2 fL (80.0-100.0); Mean Platelet Volume 6.8; Monocytes # (A) 0.3 k/uL (0-1.0); Monocytes % (A) 5 %; Neutrophils # (A) 4.7 k/uL (1.3-7.7); Neutrophils % (A) 73 %; Platelet Count 487 k/uL (150-450); RBC 4.19 m/uL (3.80-5.40); RDW 14.5 % (11.5-15.5); WBC 6.4 k/uL (3.8-10.6)
[2023-12-01 17:44] LABS: ALT 13 U/L (4-34); AST 22 U/L (14-36); African American GFR (CKD) >90 (>60 ml/min/1.73 sqM); Albumin 3.7 g/dL (3.5-5.0); Alkaline Phosphatase 105 U/L (38-126); Anion Gap 4 mmol/L; Blood Urea Nitrogen 14 mg/dL (7-17); Calcium 8.7 mg/dL (8.4-10.2); Carbon Dioxide 26 mmol/L (22-30); Chloride 106 mmol/L (98-107); Glucose 85 mg/dL (74-99); Non-African American GFR(CKD) >90 (>60 ml/min/1.73 sqM); Potassium 4.4 mmol/L (3.5-5.1); Sodium 136 mmol/L (137-145); Total Bilirubin 0.6 mg/dL (0.2-1.3); Total Protein 6.6 g/dL (6.3-8.2)
[2023-12-01 17:52] LABS: INR 0.9 (<1.2); Prothrombin Time 10.2 sec (10.0-12.5)
--- NOTE | 2023-12-01 18:05 | CT ---
EXAMINATION TYPE: CT abdomen pelvis w con DATE OF EXAM: 12/01/2023 COMPARISON: None HISTORY: abdominal pain, bloating, hx of chrons CT DLP: 422.7 mGycm Automated exposure control for dose reduction was used. TECHNIQUE: Helical acquisition of images was performed from the lung bases through the pelvis. CONTRAST: Performed without Oral Contrast and with IV Contrast, patient injected with 70ml mL of Isovue 300. FINDINGS: The lung bases are clear. The gallbladder is normal without distention, wall thickening, pericholecystic fluid or gallstones. T here is no biliary ductal dilatation. There is no focal mass or organomegaly involving the liver, pancreas, spleen or adrenal glands. There is no solid renal mass or hydronephrosis and there is homogeneous contrast enhancement of the r enal parenchyma. The caliber the abdominal aorta is normal is no retroperitoneal adenopathy or hemorr ramesh. The small bowel is markedly dilated consistent with a distal small bowel obstruction. There appears t o be marked inflammatory change in the region of the terminal ileum likely the point of the obstructi on.. There is a small amount of fluid in the cul-de-sac. There is no free intraperitoneal air. No pelvic mass, free fluid, abscess or adenopathy. The osseous structures and soft tissues are intact. IMPRESSION: Findings consistent with distal small bowel obstruction with markedly air and fluid-filled dilated sm all bowel loops. There are amorphous diffuse inflammatory changes in the region of the terminal ileum likely the point of obstruction. Findings are consistent with inflammatory bowel disease such as Color Technician hn's disease.
[2023-12-01] MEDS: KETOROLAC 15 MG/ML 1 ML VIAL IVP STA (18:27)
[2023-12-01] MEDS: methylPREDNISolone SOD SUCCI 40 MG/ML 1 ML VIAL IV STA (19:47)
[2023-12-01 20:04] VITALS: BP 108/76; PULSE 70; RESP 16
== END 2023-12-01 20:03 | disposition home or self-care (01) ==
LOC: EC 16:07
DX: K50.012 Crohn's disease of small intestine with intestinal obstruction (principal); K56.609 Unspecified intestinal obstruction, unspecified as to partial versus complete obstruction; Z88.2 Allergy status to sulfonamides
CPT/HCPCS: 36415; 80053; 85025; 85610; 85730; 74018; 74177; 99284; 96374; 96375; J1885; Q9967; J2919

== ENCOUNTER → 2023-12-13 | Outpatient (CLI) | payer MEDICAID | END | disposition home or self-care (01) | LOC: LABWHC1 10:28 | PROVIDERS: ATTEND Internal Medicine Gastroenterology | DX: K50.00 Crohn's disease of small intestine without complications (principal) | CPT/HCPCS: 36415 ==